=== PATIENT | male | born 1950 | race Caucasian/White ===

== ENCOUNTER → 2019-10-24 | Outpatient (CLI) | payer MEDICARE, BC ==
[2014-08-27 00:42] VITALS: BP 169/79
--- NOTE | 2019-10-24 12:39 | RAD ---
CHEST PA LATERAL, THORACIC SPINE 3V History: Posterior thoracic spine pain greater on the right compared to left Comparison: 10/27/2005 2 view chest x-ray exam. Findings: Frontal and lateral views of the chest were obtained. The cardiomediastinal silhouette is normal. Pulmonary vasculature is normal. The lungs are clear. No pleural effusion or pneumothorax is seen. There is no acute bone abnormality. Total 3 images of the thoracic spine were obtained. Spurring of the thoracic spine and mild midthoracic spine disc space narrowing at multiple levels are present consistent with the patient's age. No severe degenerative findings of the thoracic spine evident. No fracture or bone destruction. Subtle dextro convexity of the lower thoracic spine is present. Alignment is normal. IMPRESSION: No acute cardiopulmonary process. Degenerative changes of the thoracic spine compatible with the patient's age. Electronically signed by: Aryan Delaney MD (10/24/2019 12:36 PM) [id number]
== END | disposition home or self-care (01) ==
LOC: RAD 10:12
PROVIDERS: ATTEND Internal Medicine
DX: M48.04 Spinal stenosis, thoracic region (principal)
CPT/HCPCS: 71046; 72072

== ENCOUNTER → 2019-11-08 | Outpatient (CLI) | payer MEDICARE, BC ==
[2014-08-27 00:42] VITALS: BP 169/79
--- NOTE | 2019-11-08 10:53 | RAD ---
EXAM: CT Chest without IV contrast INDICATION: Reason: CHRONIC R SIDE BACK PAIN X 6 MONTHS / Spl. Instructions: / History: TECHNIQUE: Multi-detector row CT images were acquired from the thoracic inlet through the upper abdomen without the use of IV contrast. Sagittal and coronal images were acquired from the transaxial data. All CT scans performed at this facility utilize dose optimization techniques as appropriate to the exam, including the following: Automated exposure control and adjustment of the mA and/or KV according to patient size (this includes techniques or standardized protocols for targeted exams where dose is indication/reason for exam). COMPARISON: None FINDINGS: The absence of IV contrast limits evaluation of soft tissue pathology. CARDIOVASCULAR: Unremarkable MEDIASTINUM & MARCELA: No adenopathy or masses. Left calcified hilar lymph nodes are present.. LUNGS: No pulmonary infiltrate, suspicious nodule, or other focal abnormality. There is a calcified granuloma in the inferior left lower lobe. PLEURAL SPACE: No pleural effusions or pneumothorax. OSSEOUS & SOFT TISSUE: Multilevel thoracic spinal degenerative changes are present with anterolateral right-sided osteophytic spurring present most conspicuously at T7-T8 through T10-T11. ABDOMEN: Included upper abdomen shows a diffusely fatty liver. IMPRESSION: Multilevel thoracic spinal degenerative spondylosis. No specific findings to explain right-sided back pain otherwise noted. Electronically signed by: Renata Queen MD (11/08/2019 10:51 AM) [id number]
== END | disposition home or self-care (01) ==
LOC: CT 09:34
PROVIDERS: ATTEND Internal Medicine
DX: J84.10 Pulmonary fibrosis, unspecified (principal); K76.0 Fatty (change of) liver, not elsewhere classified; M47.814 Spondylosis without myelopathy or radiculopathy, thoracic region
CPT/HCPCS: 71250

== ENCOUNTER 2020-12-27 14:34 | Emergency (ER) | payer MEDICARE, BC ==
[~2020-12-27] VITALS: Ht 177.8 cm; Wt 102.2 kg
--- NOTE | 2020-12-27 15:24 | RAD ---
EXAM: Chest, single view. HISTORY: Covid 19. COMPARISON: 11/08/2019 FINDINGS: A frontal view of the chest is obtained. There is no infiltrate, pleural effusion or pneumo thorax. The heart is normal in size. IMPRESSION: No acute pulmonary finding. Electronically signed by: Brenda Alexandra MD (12/27/2020 3:22 PM) [facility]
[2020-12-27 15:25] VITALS: BP 181/98
[2020-12-27 15:53] LABS: BASO % 0 % (0-3); EOS % 1 % (0-3); HEMOGLOBIN 15.5 g/dL (13.0-17.5); LYMPH # 0.9 x10^3/uL (1.0-4.8); LYMPH % 15 % (24-48); MEAN CORPUSCULAR HEMOGLOBIN 29 pg (25-35); MEAN CORPUSCULAR HGB CONC 34 g/dL (31-37); MEAN CORPUSCULAR VOLUME 88 fL (79-100); MONO # 0.5 x10^3/uL (0.0-1.1); MONO % 8 % (0-9); NEUT # 4.8 x10^3/uL (1.8-7.7); NEUT % 77 % (31-73); PLATELET COUNT 279 x10^3/uL (140-400); RED BLOOD COUNT 5.25 x10^6/uL (4.30-5.70); RED CELL DISTRIBUTION WIDTH 13.8 % (11.5-14.5); WHITE BLOOD COUNT 6.3 x10^3/uL (4.0-11.0)
[2020-12-27 15:56] LABS: CALCIUM 9.8 mg/dL (8.5-10.1); GFR 73.5; POTASSIUM 4.3 mmol/L (3.5-5.1)
[2020-12-27 16:02] LABS: ALBUMIN 3.7 g/dL (3.4-5.0); ALBUMIN/GLOBULIN RATIO 1.1 (1.0-1.7); MAGNESIUM 2.4 mg/dL (1.8-2.4); TOTAL BILIRUBIN 0.4 mg/dL (0.2-1.0); TOTAL PROTEIN 7.1 g/dL (6.4-8.2)
--- NOTE | 2020-12-27 16:47 | PHYS DOC ---
Past Medical History Past Medical History: Hypertension, Other Additional Past Medical Histor: Polio as a child, BRONWYN BRONWYN'S SKIN SYNDROME, PROSTATE CANCER Past Surgical History: Tonsillectomy, Other Additional Past Surgical Histo: Right foot Smoking Status: Never Smoker Alcohol Use: None Drug Use: None General Adult EDM: Chief Complaint: Palpitations HPI: HPI: Patient is a 70 year old male who was sent here from an urgent care because of an abnormal EKG. Patient said he was sick 10 days ago with cough fever and chills. Patient said he got better. His mom is in the hospital, he went to the urgent care today to have COVID test so I can visit his mom. The tests come back positive, the somehow decided to do an EKG on him and it showed a PVC Pattern so They Sent Him Here for Evaluation. Patient Denies Any Chest Pain, No Trouble Breathing, No Cough, No Fever. Patient Was Vaccinated for COVID-19 in May. Patient denies having any heart palpitation, denies any chest pain. Patient said he feel normal Review of Systems: Review of Systems: Constitutional: Denies fever or chills. [] Eyes: Denies change in visual acuity. [] HENT: Denies nasal congestion or sore throat. [] Respiratory: Denies cough or shortness of breath. [] Cardiovascular: Denies chest pain or edema. [] GI: Denies abdominal pain, nausea, vomiting, bloody stools or diarrhea. [] : Denies dysuria. [] Musculoskeletal: Denies back pain or joint pain. [] Integument: Denies rash. [] Neurologic: Denies headache, focal weakness or sensory changes. [] Endocrine: Denies polyuria or polydipsia. [] Lymphatic: Denies swollen glands. [] Psychiatric: Denies depression or anxiety. [] Heart Score: C/O Chest Pain: N/A Risk Factors: Risk Factors: DM, Current or recent (<one month) smoker, HTN, HLP, family history of CAD, obesity. Risk Scores: Score 0 - 3: 2.5% MACE over next 6 weeks - Discharge Home Score 4 - 6: 20.3% MACE over next 6 weeks - Admit for Clinical Observation Score 7 - 10: 72.7% MACE over next 6 weeks - Early Invasive Strategies Allergies: Allergies: Allergies Coded Allergies Type Severity Reaction Last Updated Verified Penicillins Allergy Unknown 05/01/14 Yes Physical Exam: PE: Constitutional: Well developed, well nourished, no acute distress, non-toxic appearance. [] HENT: Normocephalic, atraumatic, bilateral external ears normal, oropharynx moist, no oral exudates, nose normal. [] Eyes: PERRLA, EOMI, conjunctiva normal, no discharge. [] Neck: Normal range of motion, no tenderness, supple, no stridor. [] Cardiovascular:Heart rate regular rhythm, no murmur [] Lungs & Thorax: Bilateral breath sounds clear to auscultation [] Abdomen: Bowel sounds normal, soft, no tenderness, no masses, no pulsatile masses. [] Skin: Warm, dry, no erythema, no rash. [] Back: No tenderness, no CVA tenderness. [] Extremities: No tenderness, no cyanosis, no clubbing, ROM intact, no edema. [] Neurologic: Alert and oriented X 3, normal motor function, normal sensory function, no focal deficits noted. [] Psychologic: Affect normal, judgement normal, mood normal. [] Current Patient Data: Labs: Laboratory Tests Test 12/27/20 15:10 White Blood Count 6.3 x10^3/uL (4.0-11.0) Red Blood Count 5.25 x10^6/uL (4.30-5.70) Hemoglobin 15.5 g/dL (13.0-17.5) Hematocrit 46.0 % (39.0-53.0) Mean Corpuscular Volume 88 fL (79-100) Mean Corpuscular Hemoglobin 29 pg (25-35) Mean Corpuscular Hemoglobin Concent 34 g/dL (31-37) Red Cell Distribution Width 13.8 % (11.5-14.5) Platelet Count 279 x10^3/uL (140-400) Neutrophils (%) (Auto) 77 % (31-73) H Lymphocytes (%) (Auto) 15 % (24-48) L Monocytes (%) (Auto) 8 % (0-9) Eosinophils (%) (Auto) 1 % (0-3) Basophils (%) (Auto) 0 % (0-3) Neutrophils # (Auto) 4.8 x10^3/uL (1.8-7.7) Lymphocytes # (Auto) 0.9 x10^3/uL (1.0-4.8) L Monocytes # (Auto) 0.5 x10^3/uL (0.0-1.1) Eosinophils # (Auto) 0.0 x10^3/uL (0.0-0.7) Basophils # (Auto) 0.0 x10^3/uL (0.0-0.2) Sodium Level 141 mmol/L (136-145) Potassium Level 4.3 mmol/L (3.5-5.1) Chloride Level 101 mmol/L (98-107) Carbon Dioxide Level 32 mmol/L (21-32) Anion Gap 8 (6-14) Blood Urea Nitrogen 19 mg/dL (8-26) Creatinine 1.0 mg/dL (0.7-1.3) Estimated GFR (Cockcroft-Gault) 73.5 BUN/Creatinine Ratio 19 (6-20) Glucose Level 99 mg/dL (70-99) Calcium Level 9.8 mg/dL (8.5-10.1) Magnesium Level 2.4 mg/dL (1.8-2.4) Total Bilirubin 0.4 mg/dL (0.2-1.0) Aspartate Amino Transferase (AST) 17 U/L (15-37) Alanine Aminotransferase (ALT) 41 U/L (16-63) Alkaline Phosphatase 57 U/L (46-116) Troponin I Quantitative < 0.017 ng/mL (0.000-0.055) EM-Gka-F-Type Natriuretic Peptide 276 pg/mL (0-124) H Total Protein 7.1 g/dL (6.4-8.2) Albumin 3.7 g/dL (3.4-5.0) Albumin/Globulin Ratio 1.1 (1.0-1.7) Laboratory Tests 12/27/20 15:10 Laboratory Tests 12/27/20 15:10 Vital Signs: Vital Signs Date Time Temp Pulse Resp B/P (MAP) Pulse Ox O2 Delivery O2 Flow Rate FiO2 12/27/20 15:25 98.2 66 20 181/98 (109) 99 Room Air 98.2 EKG: EKG: EKG was done at 1456, heart rate 76 bpm, PVC pattern consistent with trigeminy. No ST segment elevation. [] Radiology/Procedures: Radiology/Procedures: [facility] [address] [place] [address] IMAGING REPORT Signed PATIENT: JEF WALKER ACCOUNT: [id number] : 1950 LOCATION: ER AGE: 70 SEX: M EXAM STATUS: PRE ER ORD. PHYSICIAN: OLGA LAFLEUR DO REASON: COVID-19 INFECTION, SOA PROCEDURE: CHEST AP ONLY EXAM: Chest, single view. HISTORY: Covid 19. COMPARISON: 11/08/2019 FINDINGS: A frontal view of the chest is obtained. There is no infiltrate, pleural effusion or pneumothorax. The heart is normal in size. IMPRESSION: No acute pulmonary finding. Electronically signed by: Brenda Avila MD (12/27/2020 3:22 PM) [facility] DICTATED and SIGNED BY: BRENDA AVILA MD DATE: 12/27/20 [id number] Course & Med Decision Making: Course & Med Decision Making Pertinent Labs and Imaging studies reviewed. (See chart for details) Patient is a 70-year-old male who was tested positive for COVID-19, vitals are stable, chest x-ray were normal, level did not show any acute problem. EKG shows some PVC pattern consistent with trigeminy. Patient had no chest pain or any trouble breathing, patient will be discharged home, he will need to follow- up with cardiology for outpatient evaluation and treatment. Patient was amenable to plan of care. Dragon Disclaimer: Dragon Disclaimer: This electronic medical record was generated, in whole or in part, using a voice recognition dictation system. Departure Departure Impression: Primary Impression: Ventricular trigeminy Additional Impression: COVID-19 virus infection Disposition: HOME / SELF CARE / HOMELESS Condition: STABLE Referrals: JEF DE LA O MD (PCP) PAPI MCCONNELL MD Please call this silk screen painter for outpatient follow up next week. Patient Instructions: Premature Ventricular Contraction Additional Instructions: You have been tested for or diagnosed with COVID-19. It is an infection caused by a new type of coronavirus. COVID-19 will cause cold-like or mild flu symptoms in most. It can cause more severe symptoms like problems breathing in some. There is no treatment for COVID-19. The body will clear the infection over time. Self-care will help to ease discomfort. Steps to Take: Self-Care Rest as needed. Healthy habits may help you feel better. Steps include: Choose healthy foods including fruits and vegetables. Drink water throughout the day. Get plenty of sleep each night. If you smoke, try to quit. It may ease breathing. Avoid alcohol. Keep Others Healthy The virus can spread to others. Droplets are released every time you sneeze or cough. The droplets can get into the mouth, nose, or eyes of people near you and lead to infection. To lower the chances of spreading COVID-19 to others: Stay at home until your doctor has said it is safe to leave. If you tested positive this will mean staying isolated until both of the following are true: At least 7 days have passed since the start of illness. You are free of fever for at least 72 hours without the use of medicine. During this time: - Avoid public areas, events, or transportation. Do not return to work or school until your doctor has said it is safe to do so. - Call ahead if you need to go to a medical center. Let them know you may have COVID-19. It will help them guide you where to go. They may also ask you to wear a facemask when you come to the office. - If you call for emergency medical services, let them know you may have COVID- 19. While at home: - Try to avoid close contact with others. Stay about 6 feet away. - If possible, spend most of your time in a separate room from others. - Use a face mask if you will be in close contact with others such as sharing a room or vehicle. - Have someone wipe down common surfaces in the home. Use household java enterprise architect every day on areas like doorknobs, counters, or sinks. - Cough or sneeze into a tissue. Throw the tissue away right after use. If a tissue is not available, cough or sneeze into your elbow. - Wash your hands often. Wash them after sneezing or coughing. Use soap and water and wash for at least 20 seconds. Alcohol based hand equipment cleaner and tester can be used if soap and water is not available. - Do not prepare food for others. Avoid sharing personal items like forks, spoons, or toothbrushes. - Avoid close contact with pets while you are sick. There is no evidence of the virus passing to pets. This is a safety step until more is known about this virus. Isolation can be frustrating. Social interaction can help. Keep in touch with friends and family through phone and tech options. You can still interact with others in your home, just keep a safe distance of about 6 feet. Follow-up: Your doctors office will check in with you to see if there are any changes in your health. You may be asked to keep track of symptoms to share with them. They will also let you know when you are clear to be in public again. Problems to Look Out For: Contact your doctor if your recovery is not going as you expect. Get emergency care if you have problems such as: - Trouble breathing - Nonstop chest pain or pressure - Changes in awareness, confusion, or problems waking - Lips or face have bluish color - Worsening of symptoms If you think you have an emergency, call for emergency medical services right away. As taken from [facility] [place] OLGA Negro DO Dec 27, 2020 16:47
== END 2020-12-27 17:18 | disposition home or self-care (01) ==
LOC: ER 14:34
DX: U07.1 COVID-19 (principal); R00.8 Other abnormalities of heart beat; I10 Essential (primary) hypertension; Z88.0 Allergy status to penicillin
CPT/HCPCS: 36415; 71045; 80053; 83735; 83880; 84484; 85025; 99284; 99285-25

== ENCOUNTER → 2021-01-21 | Outpatient (CLI) | payer MEDICARE ==
[2020-12-27 15:25] VITALS: BP 181/98
--- NOTE | 2021-01-21 21:50 | CARD ---
MR#: [id number] Date of Study: 01/21/2021 Ordering Physician: RAFAEL VARELA, Referring Physician: RAFAEL VARELA, Tech: Adela Christopher [facility] APPROVED REPORT EXAM: Two-dimensional and M-mode echocardiogram with Doppler and color Doppler. Other Information Quality : AverageHR: 69bpm Rhythm : NSR INDICATION Palpitations Hypertension/HCVD RISK FACTORS Hypertension Obesity 2D DIMENSIONS RVDd2.8 (2.9-3.5cm)Left Atrium(2D)3.8 (1.6-4.0cm) IVSd0.9 (0.7-1.1cm)Aortic Root(2D)3.3 (2.0-3.7cm) LVDd5.4 (3.9-5.9cm)LVOT Diameter2.2 (1.8-2.4cm) PWd1.2 (0.7-1.1cm)LVDs4.4 (2.5-4.0cm) FS (%) 18.4 %SV53.4 ml LVEF(%)37.7 (>50%) Aortic Valve AoV Peak Nehemiah.131.2cm/sAoV VTI28.7cm AO Peak GR.6.9mmHgLVOT Peak Nehemiah.88.4cm/s AO Mean GR.4mmHgAVA (VMAX)2.45cm2 Mitral Valve MV E Cdnouxge28.6cm/sMV DECEL [id number] MV A Cxnsxlkx82.1cm/sE/A Ratio1.0 Pulmonary Valve PV Peak Swsaqlhp524.1cm/s Tricuspid Valve TR P. Yvuikavb953ic/sTR Peak Gr.16mmHg LEFT VENTRICLE The left ventricle is normal size. There is borderline concentric left ventricular hypertrophy. The l eft ventricular systolic function is normal and the ejection fraction is within normal range. EF 55% There is normal LV segmental wall motion. Tissue Doppler imaging reveals moderate left ventricular di astolic dysfunction. RIGHT VENTRICLE The right ventricle is normal size. There is normal right ventricular wall thickness. The right ventr icular systolic function is normal. ATRIA The left atrium size is normal. The right atrium size is normal. The interatrial septum is intact wit h no evidence for an atrial septal defect or patent foramen ovale as noted on 2-D or Doppler imaging. AORTIC VALVE The aortic valve is normal in structure and function. Doppler and Color Flow revealed no significant aortic regurgitation. There is no significant aortic valvular stenosis. MITRAL VALVE The mitral valve is normal in structure and function. There is no evidence of mitral valve prolapse. There is no mitral valve stenosis. Doppler and Color Flow revealed no mitral valve regurgitation note d. TRICUSPID VALVE The tricuspid valve is normal in structure and function. Doppler and Color Flow revealed trace tricus pid regurgitation. Estimated PAP 20 mmHg. There is no tricuspid valve stenosis. PULMONIC VALVE Doppler and Color Flow revealed mild to moderate pulmonic valvular regurgitation. There is no pulmoni c valvular stenosis. GREAT VESSELS The aortic root is normal in size. The ascending aorta is normal in size. The IVC is normal in size a nd collapses >50% with inspiration. PERICARDIAL EFFUSION There is no evidence of significant pericardial effusion. Critical Notification Critical Value: No <Conclusion> The left ventricular systolic function is normal and the ejection fraction is within normal range. EF 55% There is normal LV segmental wall motion. Doppler and Color Flow revealed mild to moderate pulmonic valvular regurgitation. Signed by : Reece Dodd, Electronically Approved : 01/21/2021 21:49:42
== END ==
LOC: ECHO 07:47
PROVIDERS: ATTEND Internal Medicine Cardiovascular Disease
DX: I37.1 Nonrheumatic pulmonary valve insufficiency (principal); I51.7 Cardiomegaly; R01.1 Cardiac murmur, unspecified
CPT/HCPCS: 93306